=== PATIENT | female | born 1990 | race Hispanic/Latino ===

== ENCOUNTER → 2019-03-24 14:57 | Outpatient (CLI) | payer OTHER, MEDICAID, SELFPAY ==
[2019-03-24 15:37] LABS: Influenza A and B by PCR Rapid Negative (Negative)
== END ==
PROVIDERS: PCP Specialist; Visit Provider Physician Assistant
DX: R68.89 Other general symptoms and signs (principal)
CPT/HCPCS: 87400

== ENCOUNTER 2019-06-25 15:45 | Emergency (ER) | payer OTHER, MEDICAID, SELFPAY ==
[2019-06-25 15:45] VITALS: TEMP 37.5; BMI 33.6
--- NOTE | 2019-06-25 16:16 | ED.FEMALEGU ---
HPI - Female Genitourinary General Chief complaint: Urogenital-Female Stated complaint: flank pain, bilat, thinks kidney problems Time Seen by Provider: 06/25/19 15:47 Source: patient Mode of arrival: ambulatory Limitations: no limitations History of Present Illness HPI Narrative: This is a 28-year-old female comes in with complaint of abdominal pain a little bit of flank pain. Patient has had any objective fevers but has helped felt warm and chilled intermittently. Patient denies any nausea or vomiting. She denies any diarrhea or constipation. She is just finishing her menstruation and denies any other discharge or odor. Patient has a little bit of flank pain on the right. She does impression is much on the left. And some lower abdominal discomfort. She is not appreciating any urinary frequency urgency or dysuria currently. She denies any other abdominal surgeries beside . She states she has had kidney stones in the past. She denies any medications. Related Data Home Medications Medication Instructions Recorded Confirmed vit-iron fum-folic ac 1 cap PO QDAY #0 03/31/17 03/24/19 [Mynatal] [IRON] PO QDAY #0 09/10/17 03/24/19 Previous Rx's Medication Instructions Recorded docusate sodium 250 mg PO QDAY PRN #20 cap 09/28/17 ibuprofen 600 mg PO Q6HP PRN #30 tab 09/28/17 oxycodone-acetaminophen 1 - 2 tab PO Q4HP PRN #40 tab 09/28/17 benzonatate 100 mg capsule 100 mg PO BEDTIME #20 cap 03/24/19 sulfamethoxazole-trimethoprim 1 tab PO BID #20 tab 06/25/19 [Bactrim DS] Allergies Allergy/AdvReac Type Severity Reaction Status Date / Time Penicillins [PENICILLINS] Allergy Unknown Verified 03/24/19 15:03 UNK ANTIBIOTIC Allergy Unknown Uncoded 03/06/18 12:31 Review of Systems Review of Systems ROS Unobtainable: All systems reviewed & are unremarkable except as noted in HPI and below Constitutional Denies chills, Denies fever(s), Denies lethargy and Denies weakness ENT Ears, Nose, Mouth, and Throat: Denies nasal congestion Cardiovascular Denies chest pain and Denies dyspnea Respiratory Denies chest congestion, Denies cough and Denies dyspnea Gastrointestinal Gastrointestinal: Denies abdominal pain, Denies melena, Denies hematochezia, Denies change in bowel habits, Denies diarrhea, Denies nausea and Denies vomiting Genitourinary Denies abnormal menses, Denies abnormal vaginal bleeding, Denies hematuria, Denies genital lesions, Denies dysuria, Reports pelvic pain, Reports flank pain, Denies urinary incontinence, Denies urinary urgency, Denies vaginal discharge and Denies vaginal odor Musculoskeletal Denies back pain Integumentary/Breasts Denies rash Neurologic Denies weakness [facility] Surgical History (Updated 06/25/19 @ 17:53 by Cara Thomas DO) History of (Chronic) Social History Smoking Status: Never smoker Social History Smoking Status: Never smoker Exam Narrative Exam Narrative: GENERAL: Alert and oriented x three, well-nourished, well-appearing female in mild distress. HEENT: Head normocephalic, atraumatic, EOMI, pupils reactive, face symmetric, moist mucous membranes NECK: Supple, full range of motion CARDIOVASCULAR: Regular rate and rhythm without murmurs, rubs or gallops. RESPIRATORY: Breath sounds equal bilaterally, no wheezes rales or rhonchi. ABDOMEN: Soft, nontender. Normoactive bowel sounds all 4 quadrants. No guarding or rebound, rigidity, no mass : Mild right CVA tenderness, mild left CVA tenderness. EXTREMITIES: Normal range of motion, no clubbing or edema. Neurovascularly intact NEUROLOGICAL: Cranial nerves II through XII grossly intact. Moving all extremities SKIN: Warm, dry, no petechiae, no rashes or lesions. Initial Vital Signs Initial Vital Signs: Vital Signs Temperature 99.5 F 06/25/19 15:45 Course Orders Ordered: ED Orders 06/25/19 15:55 Urine Culture Stat Urine Microscopic Stat Vital Signs - 8 hr 06/25/19 15:45 06/25/19 16:39 Temperature 99.5 F Pulse Rate 108 H Respiratory Rate 19 Blood Pressure 118/69 Pulse Oximetry 100 MDM - Female Genitourinary Lab Data Lab Results 06/25/19 Range/Units 15:55 Urine RBC None seen (0-5/HPF) Urine WBC None seen (0-5/HPF) Ur Squamous Epith Cells 1-5 /hpf (0-5/HPF) Urine Bacteria Few (2-10) H (None) Ur Culture Indicated? Specimen cultured Point of Care Testing Test Results Negative Urine Dip Bedside Urine Glucose Negative Bedside Urine Bilirubin - Negative Bedside Urine Ketone - Negative Urine Specific [place] 1.015 Bedside Urine Occult Blood +/- Bedside Urine pH 7.0 Bedside Urine Protein - Negative Bedside Urine Urobilinogen - Negative Bedside Urine Nitrite - Negative Bedside Urine Leukocytes +/- 15 Esterase MDM Narrative Medical decision making narrative: Patient and I discussed possible pyelonephritis but could potentially be other causes. Patient comfortable with watchful waiting and return if she is not improving on oral antibiotics. Discharge Plan Departure Patient Disposition: Home Clinical Impression: Pyelonephritis Discharge Date/Time: 06/25/19 16:40 Interventions: ED Discharge Assessment Last Done: 06/25/19 16:39 Instructions: DI for Kidney Infection Activity Restrictions/Additional Instructions: Follow-up in the next 3-5 days for recheck. Call for an appointment. Take antibiotics until completely gone. You may take ibuprofen up to a 800 mg every 8 hours as needed, it or Tylenol up to a 1000 mg every 8 hours as needed. Return to the emergency department for fevers greater than 100.4 F, altered mental status, persistent vomiting, rapidly worsening abdominal or flank pain, lightheadedness, passing out, black or bloody stools or other new or concerning symptoms. Prescriptions: New sulfamethoxazole-trimethoprim [Bactrim DS] 800-160 mg tablet 1 tab PO BID Qty: 20 RF: 0 No Action benzonatate 100 mg capsule 100 mg PO BEDTIME Qty: 20 RF: 0 vit-iron fum-folic ac [Mynatal] 1 EACH capsule 1 cap PO QDAY Qty: 0 RF: 0 [IRON] PO QDAY Qty: 0 RF: 0 oxycodone-acetaminophen 5 MG/325 MG tablet 1 - 2 tab PO Q4HP PRNQty: 40 RF: 0 ibuprofen 600 MG tablet 600 mg PO Q6HP PRNQty: 30 RF: 0 docusate sodium 250 MG capsule 250 mg PO QDAY PRNQty: 20 RF: 0 Referrals: Eleonora Bustamante MD [Primary Care Provider] -
[2019-06-25 16:23] LABS: RBC Urine None Seen (0-5/HPF); WBC Urine None Seen (0-5/HPF)
[2019-06-25 16:31] LABS: Bacteria Urine Few (2-10); Culture Indicated Urine Specimen Cultured; Squamous Epithelial Cell Urine 1-5 /HPF (0-5/HPF)
[2019-06-25 16:39] VITALS: BP 118/69; PULSE 108; RESP 19; O2SAT 100
--- NOTE | 2019-06-25 17:56 | ED_ITS ---
HPI - Female Genitourinary General Chief complaint: Urogenital-Female Stated complaint: flank pain, bilat, thinks kidney problems Time Seen by Provider: 06/25/19 15:47 Source: patient Mode of arrival: ambulatory Limitations: no limitations History of Present Illness HPI Narrative: This is a 28-year-old female comes in with complaint of abdominal pain a little bit of flank pain. Patient has had any objective fevers but has helped felt warm and chilled intermittently. Patient denies any nausea or vomiting. She denies any diarrhea or constipation. She is just finishing her menstruation and denies any other discharge or odor. Patient has a little bit of flank pain on the right. She does impression is much on the left. And some lower abdominal discomfort. She is not appreciating any urinary frequency ur gency or dysuria currently. She denies any other abdominal surgeries beside C- section. She states she has had kidney stones in the past. She denies any medications. Related Data Home Medications Medication Instructions Recorded Confirmed vit-iron fum-folic ac 1 cap PO QDAY #0 03/31/17 03/24/19 [Mynatal] [IRON] PO QDAY #0 09/10/17 03/24/19 Previous Rx's Medication Instructions Recorded docusate sodium 250 mg PO QDAY PRN #20 cap 09/28/17 ibuprofen 600 mg PO Q6HP PRN #30 tab 09/28/17 oxycodone-acetaminophen 1 - 2 tab PO Q4HP PRN #40 tab 09/28/17 benzonatate 100 mg capsule 100 mg PO BEDTIME #20 cap 03/24/19 sulfamethoxazole-trimethoprim 1 tab PO BID #20 tab 06/25/19 [Bactrim DS] Allergies Allergy/AdvReac Type Severity Reaction Status Date / Time Penicillins [PENICILLINS] Allergy Unknown Verified 03/24/19 15:03 UNK ANTIBIOTIC Allergy Unknown Uncoded 03/06/18 12:31 Review of Systems Review of Systems ROS Unobtainable: All systems reviewed & are unremarkable except as noted in HPI and below Constitutional Denies chills, Denies fever(s), Denies lethargy and Denies weakness ENT Ears, Nose, Mouth, and Throat: Denies nasal congestion Cardiovascular Denies chest pain and Denies dyspnea Respiratory Denies chest congestion, Denies cough and Denies dyspnea Gastrointestinal Gastrointestinal: Denies abdominal pain, Denies melena, Denies hematochezia, Denies change in bowel habits, Denies diarrhea, Denies nausea and Denies vomiting Genitourinary Denies abnormal menses, Denies abnormal vaginal bleeding, Denies hematuria, Denies genital lesions, Denies dysuria, Reports pelvic pain, Reports flank pain, Denies urinary incontinence, Denies urinary urgency, Denies vaginal discharge and Denies vaginal odor Musculoskeletal Denies back pain Integumentary/Breasts Denies rash Neurologic Denies weakness [facility] Surgical History (Updated 06/25/19 @ 17:53 by Cara Thomas DO) History of (Chronic) Social History Smoking Status: Never smoker Social History Smoking Status: Never smoker Exam Narrative Exam Narrative: GENERAL: Alert and oriented x three, well-nourished, well- appearing female in mild distress. HEENT: Head normocephalic, atraumatic, EOMI, pupils reactive, face symmetric, moist mucous membranes NECK: Supple, full range of motion CARDIOVASCULAR: Regular rate and rhythm without murmurs, rubs or gallops. RESPIRATORY: Breath sounds equal bilaterally, no wheezes rales or rhonchi. ABDOMEN: Soft, nontender. Normoactive bowel sounds all 4 quadrants. No guarding or rebound, rigidity, no mass : Mild right CVA tenderness, mild left CVA tenderness. EXTREMITIES: Normal range of motion, no clubbing or edema. Neurovascularly intact NEUROLOGICAL: Cranial nerves II through XII grossly intact. Moving all extremities SKIN: Warm, dry, no petechiae, no rashes or lesions. Initial Vital Signs Initial Vital Signs: Vital Signs Temperature 99.5 F 06/25/19 15:45 Course Orders Ordered: ED Orders 06/25/19 15:55 Urine Culture Stat Urine Microscopic Stat Vital Signs - 8 hr 06/25/19 15:45 06/25/19 16:39 Temperature 99.5 F Pulse Rate 108 H Respiratory Rate 19 Blood Pressure 118/69 Pulse Oximetry 100 MDM - Female Genitourinary Lab Data Lab Results 06/25/19 Range/Units 15:55 Urine RBC None seen (0-5/HPF) Urine WBC None seen (0-5/HPF) Ur Squamous Epith Cells 1-5 /hpf (0-5/HPF) Urine Bacteria Few (2-10) H (None) Ur Culture Indicated? Specimen cultured Point of Care Testing Test Results Negative Urine Dip Bedside Urine Glucose Negative Bedside Urine Bilirubin - Negative Bedside Urine Ketone - Negative Urine Specific [place] 1.015 Bedside Urine Occult Blood +/- Bedside Urine pH 7.0 Bedside Urine Protein - Negative Bedside Urine Urobilinogen - Negative Bedside Urine Nitrite - Negative Bedside Urine Leukocytes +/- 15 Esterase MDM Narrative Medical decision making narrative: Patient and I discussed possible pyelonephritis but could potentially be other causes. Patient comfortable with watchful waiting and return if she is not improving on oral antibiotics. Discharge Plan Departure Patient Disposition: Home Clinical Impression: Pyelonephritis Discharge Date/Time: 06/25/19 16:40 Interventions: ED Discharge Assessment Last Done: 06/25/19 16:39 Instructions: DI for Kidney Infection Activity Restrictions/Additional Instructions: Follow-up in the next 3-5 days for recheck. Call for an appointment. Take antibiotics until completely gone. You may take ibuprofen up to a 800 mg every 8 hours as needed, it or Tylenol up to a 1000 mg every 8 hours as needed. Return to the emergency department for fevers greater than 100.4 F, altered mental status, persistent vomiting, rapidly worsening abdominal or flank pain, lightheadedness, passing out, black or bloody stools or other new or concerning symptoms. Prescriptions: New sulfamethoxazole-trimethoprim [Bactrim DS] 800-160 mg tablet 1 tab PO BID Qty: 20 RF: 0 No Action benzonatate 100 mg capsule 100 mg PO BEDTIME Qty: 20 RF: 0 vit-iron fum-folic ac [Mynatal] 1 EACH capsule 1 cap PO QDAY Qty: 0 RF: 0 [IRON] PO QDAY Qty: 0 RF: 0 oxycodone-acetaminophen 5 MG/325 MG tablet 1 - 2 tab PO Q4HP PRNQty: 40 RF: 0 ibuprofen 600 MG tablet 600 mg PO Q6HP PRNQty: 30 RF: 0 docusate sodium 250 MG capsule 250 mg PO QDAY PRNQty: 20 RF: 0 Referrals: Eleonora Bustamante MD [Primary Care Provider] -
== END 2019-06-25 16:40 | disposition home or self-care (01) ==
PROVIDERS: Emergency Provider Emergency Medicine; PCP Specialist
DX: N12 Tubulo-interstitial nephritis, not specified as acute or chronic (principal)
CPT/HCPCS: 81003; 81015; 81025; 87086; 99282; 99283

== ENCOUNTER → 2020-07-05 16:38 | Outpatient (CLI) | payer OTHER, MEDICAID, SELFPAY ==
[2020-07-05 17:26] LABS: Add Manual Diff / Slide Review NO; Basophils Absolute Auto 0 /uL (0-100); Basophils Percent Auto 0.1 % (0-2); Eosinophils Absolute Auto 0 /uL (0-450); Eosinophils Percent Auto 0.4 % (2-4); Hematocrit 34.7 % (36-46); Hemoglobin 11.7 g/dL (12.0-16.0); Lymphocytes Absolute Auto 2700 /uL (1100-4500); Lymphocytes Percent Auto 29.2 % (25-40); Mean Corpuscular HGB Conc 33.7 % (30-36); Mean Corpuscular Hemoglobin 27.9 PG (26-34); Mean Corpuscular Volume 82.8 fL (80-100); Monocytes Absolute Auto 500 /uL (0-900); Monocytes Percent Auto 5.6 % (3-14); Neutrophils Absolute Auto 5900 /uL (1500-7000); Neutrophils Percent Auto 64.7 % (50-75); Platelet Count 243 X10^3/uL (150-400); Red Blood Cell Count 4.19 X10^6/uL (4.0-5.2); Red Cell Distribution Width 14.5 % (11.6-14.8); White Blood Cell Count 9.2 X10^3/uL (4.5-11.0)
[2020-07-05 17:55] LABS: Appearance Urine UA CLEAR; Bilirubin Urine UA NEGATIVE (NEGATIVE); Color Urine UA YELLOW; Glucose Urine UA NEGATIVE (Negative); Ketones Urine UA NEGATIVE (NEGATIVE); Leukocyte Esterase Urine UA NEGATIVE (NEGATIVE); Nitrite Urine UA NEGATIVE (Negative); Occult Blood Urine UA NEGATIVE (Negative); Protein Urine UA NEGATIVE (Negative); Urobilinogen Urine UA 0.2 E.U./dL (0.2)
[2020-07-05 18:46] LABS: Hepatitis B Surface Antigen NEGATIVE s/c (NEGATIVE)
[2020-07-05 19:06] LABS: HIV 1 & 2 Ab/Ag 4th Gen Combo NEGATIVE (NEGATIVE); Hep C Virus Ab w/Reflex Quant NEGATIVE s/c (NEGATIVE)
[2020-07-06 05:37] LABS: RPR Screen Non Reactive (Non Reactive)
[2020-07-06 11:22] LABS: Varicella IgG Antibody 723 index (Immune >165)
== END ==
PROVIDERS: PCP Specialist; Referring Provider Specialist; Visit Provider Specialist
DX: Z34.90 Encounter for supervision of normal pregnancy, unspecified, unspecified trimester (principal)
CPT/HCPCS: 36415; 80055; 81003; 86787; 86803; 86850; 86900; 86901; 87077; 87086; 87389

== ENCOUNTER → 2020-08-04 10:54 | Outpatient (CLI) | payer OTHER, MEDICAID, SELFPAY ==
--- NOTE | 2020-08-04 10:55 | DI.US.S_ITS ---
PROCEDURE: US OB >= 14 WEEKS FETUS INDICATIONS: 20 week anatomy scan OUTSIDE/PRIOR DATING DATA: Last menstrual period (LMP): March 19, 2020. LMP-based estimated date of delivery (BLANCA): December 24, 2020 . First dating scan (date and location): May 24, 2020 . Estimated date of delivery (BLANCA) from first dating scan: December 24, 2020 . TECHNIQUE: Real-time scanning was performed of the fetus, with image documentation and biometric measurements. Endovaginal scanning: Not performed COMPARISON: None. FINDINGS: General: A single living intrauterine gestation is present. Presentation: Transverse/maternal right. Placenta: Placental position is anterior , without previa. Amniotic fluid index: 15.5 cm, normal range is 5-24 cm. heart rate: 158 beats per minute. Maternal cervical canal: 4.6 cm long. Normal lower limit is 2.5 cm. biometrics: Biparietal diameter: 4.6 cm, correlating with 19 weeks and 6 days Head circumference: 12.3 cm, correlating with 19 weeks and 6 days Abdominal circumference: 14.8 cm, correlating with 20 weeks and 1 day Femur length: 3.2 cm, correlating with 20 weeks and 0 days. Estimated gestational age from initial scan: 19 weeks and 5 days. Composite gestational age from present scan: 20 weeks and 0 days Estimated weight and percentile: 327 g Measurement variability for biometric dating: +/- 7 days from 14 weeks to 15 weeks 6 days gestation, +/- 10 days from 16 weeks to 21 weeks 6 days gestation, +/- 2 weeks from 22 weeks to 27 weeks 6 days gestation, +/- 3 weeks for 28 weeks gestation or later. weight reference: 4500 g or EFW >90/95% is considered macrosomia or large for gestational age. EFW <10% is small for gestational age. EFW 5% or less is considered intra-uterine growth restriction. Anatomic survey: Neuro: Ventricles are non-dilated at less than 10 mm. Cisterna magna is normal at 3-11 mm. Cerebellum is normal in size and morphology. Nuchal skin fold: Normal at less than 6 mm between 14-21 weeks gestational age. Face: Nose and lips, facial profile are normal. Spine: No evidence for spina bifida. Heart: 4-chambered heart is present, with normal ventricular outflow tracts. Diaphragm: Diaphragm is intact. Stomach: Left-sided stomach is present. Kidneys: No hydronephrosis. Normal is less than 5 mm in 2nd trimester, less than 7 mm in 3rd trimester. Cord: 3-vessel cord has orthotopic insertion. Bladder: Normal in size. Extremities: All 4 extremities identified. IMPRESSION: Single living intrauterine gestation with an estimated sonographic gestational age of approximately 20 weeks and 0 days. This correlates with an estimated dated delivery December 22, 2020 which is still concordant with estimated date of delivery by last menstrual period of December 24, 2020. Normal second-trimester anatomic screening survey. Dictated by: Geovanni Dietz M.D. on 08/04/2020 at 14:42 Approved by: Geovanni Dietz M.D. on 08/04/2020 at 14:47
== END ==
PROVIDERS: PCP Specialist; Referring Provider Specialist; Visit Provider Specialist
DX: Z34.82 Encounter for supervision of other normal pregnancy, second trimester (principal); Z3A.20 20 weeks gestation of pregnancy
CPT/HCPCS: 76811

== ENCOUNTER 2020-09-02 17:54 | Outpatient (CLI) | payer OTHER, MEDICAID, SELFPAY | END 2020-09-02 19:08 | disposition home or self-care (01) | LOC: OB 09-03 13:01 | PROVIDERS: Referring Provider Specialist; Visit Provider Specialist | DX: O47.02 False labor before 37 completed weeks of gestation, second trimester (principal); Z3A.23 23 weeks gestation of pregnancy | CPT/HCPCS: 59025; G0378; G0379 ==

== ENCOUNTER → 2020-09-15 15:07 | Outpatient (CLI) | payer OTHER, MEDICAID, SELFPAY ==
[2020-09-15 18:02] LABS: Hematocrit 31.9 % (36-46); Hemoglobin 10.8 g/dL (12.0-16.0)
[2020-09-15 18:12] LABS: GTT (PREG) 1 Hour PP 50gm Dose 103 mg/dL (76-139)
== END ==
PROVIDERS: Referring Provider Specialist; Visit Provider Specialist
DX: Z34.82 Encounter for supervision of other normal pregnancy, second trimester (principal); Z3A.24 24 weeks gestation of pregnancy
CPT/HCPCS: 36415; 82950; 85014; 85018

== ENCOUNTER → 2020-12-01 15:10 | Outpatient (CLI) | payer OTHER, MEDICAID, SELFPAY ==
[2020-12-02 11:08] LABS: Strep Grp B PCR POS for Grp B Strep
== END ==
PROVIDERS: Visit Provider Specialist
DX: Z34.83 Encounter for supervision of other normal pregnancy, third trimester (principal); Z3A.36 36 weeks gestation of pregnancy
CPT/HCPCS: 87186; 87653

== ENCOUNTER 2020-12-15 11:41 | Outpatient (CLI) | payer OTHER, MEDICAID, SELFPAY ==
--- NOTE | 2020-12-15 12:11 | PM.OBTRLD ---
Visit Information Visit Information Date of evaluation: 12/15/20 Primary OB Provider: Eleonora Bustamante Reason for Evaluation: Yes non-stress test non-stress test reason: decreased movement and other (Abdominal pain) Vital Signs Vital Signs: Blood pressure 119/75, pulse 72 PFSH Medical History (Updated 12/15/20 @ 12:12 by Eleonora Bustamante MD) Abnormal Pap smear of cervix Acne (~2006) Acute bronchitis Anemia Anemia affecting Asthma Carpal tunnel syndrome (~2007) Chicken pox (~1994) Closed fracture of distal phalanx of right little finger Conjunctivitis Delivered by section HSV-1 (herpes simplex virus 1) infection Kidney stones UTI (urinary tract infection) Surgical History (Updated 07/04/20 @ 19:43 by Alyssa Sanchez) Anesthesia History of appendectomy (~2002) History of (~09/26/17) S/P laparoscopic appendectomy S/P tonsillectomy (~2001) Family History (Updated 07/04/20 @ 19:48 by Alyssa Sanchez) Mother Hypertension Father Hypertension Sleep apnea Grandfather Bipolar 1 disorder History of heart disease Grandfather Hypertension Sleep apnea Diabetes mellitus History of heart disease Hyperlipidemia Grandmother Liver failure Alcoholic Mental health problem Family/Other Deafness Grandmother Sleep apnea Hypertension Diabetes mellitus Brother Hypertension Adopted Hyperlipidemia Sister Anxiety Depression Mental health problem Social History marital status: unmarried,living together household members: significant other pets and animals: Yes (X 2 dogs and X 1 cat) education level: college occupational status: employed current occupational exposures/hazards: No 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 No evidence of labor. Patient is scheduled in 2 days for . Precautions reviewed. COVID testing done. OB Disposition: home
[2020-12-15 13:07] LABS: COVID19 -Nasal RAPID Negative (Negative)
== END 2020-12-15 12:21 | disposition home or self-care (01) ==
LOC: LABOR 12:01 → OB 12-16 11:53
PROVIDERS: Referring Provider Specialist; Visit Provider Specialist
DX: O36.8190 Decreased fetal movements, unspecified trimester, not applicable or unspecified (principal)
CPT/HCPCS: 59025; 87635; C9803; G0378; G0379

== ENCOUNTER 2020-12-17 05:45 | Inpatient (IN) | payer OTHER, MEDICAID, SELFPAY ==
[2020-12-17] VITALS (7 sets, daily range): BP systolic 105–129; BP diastolic 60–80; PULSE 70–91; RESP 12–18; TEMP 36.4–36.7; O2SAT 98–100
[2020-12-17] MEDS: LACTATED RINGERS 1,000 ML 100 ML IV ×4 (06:20→18:49)
[2020-12-17 06:38] LABS: Add Manual Diff / Slide Review NO; Basophils Absolute Auto 0 /uL (0-100); Basophils Percent Auto 0.4 % (0-2); Eosinophils Absolute Auto 100 /uL (0-450); Eosinophils Percent Auto 1.1 % (2-4); Hematocrit 35.6 % (36-46); Lymphocytes Absolute Auto 2500 /uL (1100-4500); Lymphocytes Percent Auto 32.7 % (25-40); Mean Corpuscular HGB Conc 33.6 % (30-36); Mean Corpuscular Hemoglobin 29.7 PG (26-34); Mean Corpuscular Volume 88.2 fL (80-100); Monocytes Absolute Auto 400 /uL (0-900); Monocytes Percent Auto 5.6 % (3-14); Neutrophils Absolute Auto 4600 /uL (1500-7000); Neutrophils Percent Auto 60.2 % (50-75); Platelet Count 139 X10^3/uL (150-400); Red Blood Cell Count 4.03 X10^6/uL (4.0-5.2); Red Cell Distribution Width 14.9 % (11.6-14.8); White Blood Cell Count 7.6 X10^3/uL (4.5-11.0)
--- NOTE | 2020-12-17 07:22 | PM.PREOP ---
Pre-operative Note COVID-19 COVID-19 status: Negative Result date/Date tested (Pos, Neg/Pending): 12/15/20 Interval Note History & Physical reviewed/Exam performed by Physician: Yes Changes to H&P: No
--- NOTE | 2020-12-17 07:23 | PM.OBHP.1 ---
OB HPI Date/Time Date of admission: 12/17/20 Date Patient Seen: 12/17/20 Time Patient Seen: 07:23 History of Present Condition Chief complaint: INPT : 2 Para: 1 Estimated Date of Delivery: 12/24/20 Estimated Gestational Age (weeks): 39 Narrative: Yanna Lovett is a 30 year old female admitted for repeat section Indications Operative indications ( section): previous uterine surgery History of Present care: good care, initiated at week # (8), number of visits (10) and pounds weight gain (49) Dating criteria: LMP confirmed by 1st trimester US Ultrasounds: normal mid trimester US Obstetrical complications: none Medical complications: none Preadmission Labs Blood type: O (+) positive -: Antibody screen: negative, GBS status: positive, HBsAG: negative, HIV: negative, HSV 1: positive, HSV 2: negative and RPR/VDLR: negative -: Chlamydia screen: not detected and Gonorrhea screen: not detected -: Rubella: immune and Varicella: immune HCAB: negative Quad screen: Normal 1 hr GTT: 103 Prior (ies) History: 09/26/2017 section male weighing 8 lb 7 oz Evaluation Evaluation Baseline heart rate: 140 Variability: Moderate (11-25) monitor accelerations: Present monitor decelerations: Absent Contraction Frequency (minutes): 8 Uterine Contraction Intensity: Mild Category of Tracing: Reactive Status: Category l Laboratory results: Laboratory Tests 12/17/20 06:25 WBC 7.6 RBC 4.03 Hgb 12.0 Hct 35.6 L MCV 88.2 MCH 29.7 MCHC 33.6 RDW 14.9 H Plt Count 139 L Neut % (Auto) 60.2 Lymph % (Auto) 32.7 [place] % (Auto) 5.6 Eos % (Auto) 1.1 L Baso % (Auto) 0.4 Neut # (Auto) 4600 Lymph # (Auto) 2500 [place] # (Auto) 400 Eos # (Auto) 100 Baso # (Auto) 0 PFSH Medical History (Updated 12/15/20 @ 12:12 by Eleonora Bustamante MD) Abnormal Pap smear of cervix Acne (~2006) Acute bronchitis Anemia Anemia affecting Asthma Carpal tunnel syndrome (~2007) Chicken pox (~1994) Closed fracture of distal phalanx of right little finger Conjunctivitis Delivered by section HSV-1 (herpes simplex virus 1) infection Kidney stones UTI (urinary tract infection) Surgical History (Updated 07/04/20 @ 19:43 by Alyssa Sanchez) Anesthesia History of appendectomy (~2002) History of (~09/26/17) S/P laparoscopic appendectomy S/P tonsillectomy (~2001) Family History (Updated 07/04/20 @ 19:48 by Alyssa Sanchez) Mother Hypertension Father Hypertension Sleep apnea Grandfather Bipolar 1 disorder History of heart disease Grandfather Hypertension Sleep apnea Diabetes mellitus History of heart disease Hyperlipidemia Grandmother Liver failure Alcoholic Mental health problem Family/Other Deafness Grandmother Sleep apnea Hypertension Diabetes mellitus Brother Hypertension Adopted Hyperlipidemia Sister Anxiety Depression Mental health problem Social History marital status: unmarried,living together household members: significant other pets and animals: Yes (X 2 dogs and X 1 cat) education level: college occupational status: employed current occupational exposures/hazards: No 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 Good movement. No rupture membranes. No regular contractions. ROS: Yes All systems reviewed with the patient and are negative except as otherwise documented Exam Vital Signs (past 8 hours): Blood pressure 124/91, pulse of 100, temperature 96.8? Narrative Exam Narrative: HEENT exam within normal limits. Lungs are clear to auscultation percussion. Heart is regular rate and rhythm no S3-S4 or murmurs. Abdomen is gravid. Fetus is vertex. Extremities without edema and nontender. Patient did received Tdap in the 3rd trimester. Objective Labs Result Diagrams: 12/17/20 06:25 Labs: Laboratory Results - last 24 hr 12/17/20 06:25 WBC 7.6 RBC 4.03 Hgb 12.0 Hct 35.6 L MCV 88.2 MCH 29.7 MCHC 33.6 RDW 14.9 H Plt Count 139 L Neut % (Auto) 60.2 Lymph % (Auto) 32.7 [place] % (Auto) 5.6 Eos % (Auto) 1.1 L Baso % (Auto) 0.4 Neut # (Auto) 4600 Lymph # (Auto) 2500 [place] # (Auto) 400 Eos # (Auto) 100 Baso # (Auto) 0 Assessment and Plan Assessment and Plan Assessment and Plan narrative: 39 week gestation with prior section for repeat section. Patient decided not to proceed with tubal ligation.
--- NOTE | 2020-12-17 07:30 | SUR.OPER ---
Supine on Padded OR bed, head on pillow, safety belt at thigh, arms secured on padded arm boards at <90 degrees abduction. Bump under right buttock. Legs uncrossed with pillow under knees, gel pad to heels, tape over blanket to lower legs.
[2020-12-17] MEDS: CEFAZOLIN 2 GM/100 ML FROZ.PIGGY IV (07:59)
--- NOTE | 2020-12-17 08:27 | SUR.OPER ---
FHT 140 LIVE MALE BORN AT 0816 PLACENTA AT 0818
--- NOTE | 2020-12-17 09:11 | SUR.PHASEI ---
L&D nurse came to bedside asking pt. what she'd prefer, formula or glucose gel, for baby's BG 27. mom stated, whatever is best for the baby, nurse left. ongoing monitoring, pt. doing well.
--- NOTE | 2020-12-17 09:19 | PM.OP.1 ---
Operative Date/Time/Diagnoses Date of procedure: 12/17/20 Time of procedure: 09:20 Pre-op diagnosis: Prior section at 39 weeks for repeat Post-op diagnosis: same Procedure & Clinicians Procedure: Repeat low-transverse section Same procedure as scheduled: Yes Indications: Prior section at 39 weeks Surgeon: Eleonora Bustamante Registration Specialist: Indira Centeno Click Yes if Unassisted: No Anesthesia Type: Spinal Operative Notes Findings: Normal tubes, ovaries, uterus, viable male infant weighing 7 lb 8 oz with Apgars of 9 and 9 Closure Type: primary Specimen(s): none sent Applied: catheter ([place]) Estimated Blood Loss (mL): 300 Blood products transfused: none Procedure in detail: The patient was brought to the operating room where she underwent a spinal for anesthesia. She was placed in a supine position with a left lateral tilt. A [place] catheter was placed. Pulsatile stockings were placed and functional throughout the case. 2 g of Ancef were given IV prior to the incision. Warming was in place. The patient was prepped and draped in usual sterile fashion. A low transverse incision was made with a scalpel and the incision was carried down to the fascial layer which was incised transversely with scissors. The assistant community manager did her side of the incision. The midline attachments are superiorly and inferiorly. Some bleeding was controlled Bovie. The rectus muscles were in the midline and the peritoneal incision was made with no damage to internal structures. The peritoneum was incised and superiorly and inferiorly. The incision was stretched with the surgeon and assistant community manager placing traction. Bladder blade was placed and a bladder flap was developed and the bladder held away from the lower uterine segment. An incision was made in the uterus with the scalpel and the incision was extended with stretching. The head was elevated out of the abdomen and with fundal pressure by the assistant community manager the baby was delivered. The was bulb suctioned for clear fluid and handed off to the warmer. Cord blood was collected. The placenta delivered spontaneously with traction. The uterus was cleaned with clean laps. The uterine incision was closed in 2 layers of 0 chromic suture the first a running locking layer the second an imbricating layer. The assistant community manager was helping to expose the incision. The bladder peritoneum was repaired with 2-0 Vicryl suture. The gutters were cleaned of any remaining fluids and ovaries and tubes were observed to be normal. Adequate hemostasis was noted. The perineum was closed with 2-0 Vicryl suture. The fascia layer was closed with 0 Vicryl suture with 2 stitches. The assistant community manager repairing half the incision with helping to retract and expose the incision for the other half. The incision was irrigated and adequate hemostasis noted. The incision was closed with interrupted 3-0 Vicryl sutures and then a subcuticular stitch of 4-0 Vicryl suture. Steri-Strips were placed. The uterus was massaged to remove any clots. The patient went to recovery room in good condition. Counts of instruments and sponges were correct. Dr. Centeno was present throughout the case to assist with retraction, fundal pressure to deliver the infant, and suturing half the fascia. Complications: none Post-operative Condition: stable Disposition: other ( Center) Plan for aftercare: Routine post section
[2020-12-17] MEDS: KETOROLAC 30 MG/ML VIAL IV ×2 (14:41→20:33)
[2020-12-17] MEDS: LANOLIN OINT 7 GM 1 APPLIC TOP (17:36)
[2020-12-18] MEDS: KETOROLAC 30 MG/ML VIAL IV (02:32)
[2020-12-18] MEDS: ACETAMINOPHEN 325 MG TABLET 650 MG PO ×2 (02:33→08:52)
[2020-12-18 06:36] LABS: Add Manual Diff / Slide Review NO; Basophils Absolute Auto 0 /uL (0-100); Basophils Percent Auto 0.3 % (0-2); Eosinophils Absolute Auto 100 /uL (0-450); Eosinophils Percent Auto 1.2 % (2-4); Hematocrit 32.2 % (36-46); Hemoglobin 10.9 g/dL (12.0-16.0); Lymphocytes Absolute Auto 2000 /uL (1100-4500); Lymphocytes Percent Auto 29.8 % (25-40); Mean Corpuscular HGB Conc 33.8 % (30-36); Mean Corpuscular Volume 88.6 fL (80-100); Monocytes Absolute Auto 400 /uL (0-900); Monocytes Percent Auto 5.4 % (3-14); Neutrophils Absolute Auto 4300 /uL (1500-7000); Neutrophils Percent Auto 63.3 % (50-75); Platelet Count 127 X10^3/uL (150-400); Red Blood Cell Count 3.64 X10^6/uL (4.0-5.2); Red Cell Distribution Width 14.7 % (11.6-14.8); White Blood Cell Count 6.9 X10^3/uL (4.5-11.0)
[2020-12-18] MEDS: PRENATAL VIT,CALC/IRON/FOLIC 1 TABLET 1 TAB PO (08:52)
[2020-12-18] MEDS: DOCUSATE 250 MG CAPSULE PO (08:52)
[2020-12-18] MEDS: IBUPROFEN 600 MG TABLET PO (08:53)
--- NOTE | 2020-12-18 10:29 | P.DS_ITS ---
Discharge Providers Provider Date of admission: 12/17/20 05:45 Discharge Date: 12/18/20 Primary care physician: Doctor Melvin MD Consults: 12/17/20 10:32 Consult to Insurance Sales Representative Routine Comment: Discharge provider: Eleonora Bustamante MD Summary Hospital Course Date Patient Seen: 12/18/20 Time Patient Seen: 10:30 Procedures: Repeat low-transverse section Hospital Course: Patient was admitted for repeat low-transverse section. She did well . She is urinating and ambulating well. She is passing gas. She denies any headaches, scotomata, epigastric pain. Bleeding is mild. Peripartum Data Infant Delivery Method: Section (Repeat) complications: none [place] 1: Gender: Male Disposition of : home Discharge Diagnosis (1) delivery delivered: Status: Acute Status at Discharge Cognitive/behavioral status at discharge: oriented Functional status at discharge: independent ambulation Overall status at discharge: patient is progressing back to baseline Time Spent with Patient Time attestation: Total time spent providing and/or coordinating discharge services: Time spent: Less than 30 minutes Objective Labs Result Diagrams: 12/18/20 06:28 Labs: Laboratory Results - last 24 hr 12/18/20 06:28 WBC 6.9 RBC 3.64 L Hgb 10.9 L Hct 32.2 L MCV 88.6 MCH 30.0 MCHC 33.8 RDW 14.7 Plt Count 127 L Neut % (Auto) 63.3 Lymph % (Auto) 29.8 [place] % (Auto) 5.4 Eos % (Auto) 1.2 L Baso % (Auto) 0.3 Neut # (Auto) 4300 Lymph # (Auto) 2000 [place] # (Auto) 400 Eos # (Auto) 100 Baso # (Auto) 0 Exam Vital Signs (past 8 hours): Blood pressure 129/80, pulse of 91, temperature 98.1? Oxygen Delivery Method Room Air Narrative Exam Narrative: Abdomen is soft, nontender. Uterus is firm, at U, nontender. Dressing is clean, dry. Mild lochia. Extremities without edema and nontender. Patient's blood type is O positive, she is rubella immune, she received Tdap in the 3rd trimester. Discharge Plan Discharge Plan Patient Disposition: Home Discharge orders & Medications Prescriptions: New ibuprofen 600 mg Tablet 600 mg PO Q6HR PRN (Reason: Fever/Mild Pain (1-3)) Qty: 30 RF: 0 oxycodone-acetaminophen [Percocet] 5-325 mg tablet 1 tab PO Q4H PRN (Reason: pain) Qty: 30 RF: 0 Continued vit-iron fum-folic ac [Mynatal] 1 EACH capsule 1 cap PO QDAY Qty: 0 RF: 0 [IRON] PO QDAY Qty: 0 RF: 0 Follow up/Referrals: Eleonora Bustamante MD [Physician] - 1 Week (Aquacel removal) Doctor Charles MD [Primary Care Provider] - Diet/Activity/Treatments Diet: Regular Activity: Nothing in vagina or lifting over 20 lb for 6 weeks Skin/Wound/Dressing Care Report to your healthcare provider any signs of infection, such as:: chills, fever and increased pain Dressing: Leave dressing in place until one-week postop appointment Discharge Data Primary Care Provider: Doctor Melvin
== END 2020-12-18 13:12 | disposition home or self-care (01) | DRG 540 ==
PROVIDERS: Admitting Provider Specialist; Referring Provider Specialist; Visit Provider Specialist
PROC: 10D00Z1 Extraction of Products of Conception, Low, Open Approach (ICD-10-PCS; CPT 59514; principal; 2020-12-17 07:45)
DX: O34.219 Maternal care for unspecified type scar from previous cesarean delivery (principal); O36.8190 Decreased fetal movements, unspecified trimester, not applicable or unspecified; O99.824 Streptococcus B carrier state complicating childbirth; Z3A.39 39 weeks gestation of pregnancy; Z37.0 Single live birth
CPT/HCPCS: 36415; 59025; 59050; 59514; 85025; 86850; 86900; 86901; 87635; C9803; J0690; J1885; J2274; J2405; J2590

== ENCOUNTER 2022-02-15 07:37 | Emergency (ER) | payer OTHER, MEDICAID, SELFPAY ==
[2022-02-15 07:38] VITALS: BP 122/73; PULSE 95; RESP 17; TEMP 37; O2SAT 100; BMI 38.4
--- NOTE | 2022-02-15 07:52 | ED.BACK ---
HPI - Back Pain/Injury General Chief Complaint: Back Pain/Injury Stated Complaint: possible kidney infection, nausea Time Seen by Provider: 02/15/22 07:40 Source: patient Mode of arrival: Ambulatory Limitations: no limitations History of Present Illness HPI Narrative: 31-year-old female who is here stating that she thinks she has a kidney infection. She states that for the past month she has had off and on right more than left back discomfort. She states that it feels similar to when she has had kidney infections in the past. She also states that she started her menstrual cycle last week which made the discomfort worse. Has not followed up for this during the past month. Some nausea today. No fevers. She states that she did have ?low-grade ?fevers when all the symptoms started but nothing currently. No specific urinary symptoms. She states she has had kidney stones in the past but this does not feel like kidney stone. Related Data Home Medications Medication Instructions Recorded Confirmed vitamin-ferrous fumarate 1 cap PO QDAY #0 03/31/17 01/20/21 65 mg iron-folic acid 1 mg capsule (Mynatal) [IRON] PO QDAY #0 09/10/17 01/20/21 Previous Rx's Medication Instructions Recorded ibuprofen 600 mg tablet 600 mg PO Q6HR PRN #30 tab 12/18/20 Allergies Allergy/AdvReac Type Severity Reaction Status Date / Time Penicillins Allergy Intermediate Vomiting Verified 10/13/20 14:45 Review of Systems Constitutional Constitutional: Reports as per HPI and Reports system reviewed and no additional complaints, except as documented Cardiovascular Cardiovascular: Reports system reviewed and no additional complaints, except as documented Respiratory Respiratory: Reports system reviewed and no additional complaints, except as documented Gastrointestinal Gastrointestinal: Reports as per HPI and Reports system reviewed and no additional complaints, except as documented Genitourinary Genitourinary: Reports system reviewed and no additional complaints, except as documented and Reports as per HPI Musculoskeletal Musculoskeletal: Reports back pain Hematologic/Lymphatic On Anticoagulants: No Patient History Medical History Abnormal Pap smear of cervix Acne (~2006) Acute bronchitis Anemia Anemia affecting Asthma Carpal tunnel syndrome (~2007) Chicken pox (~1994) Closed fracture of distal phalanx of right little finger Conjunctivitis Delivered by section HSV-1 (herpes simplex virus 1) infection Kidney stones Pyelonephritis UTI (urinary tract infection) Surgical History (Updated 07/04/20 @ 19:43 by Alyssa Sanchez) Anesthesia History of appendectomy (~2002) History of (~09/26/17) S/P laparoscopic appendectomy S/P tonsillectomy (~2001) Family History (Updated 07/04/20 @ 19:48 by Alyssa Sanchez) Mother Hypertension Father Hypertension Sleep apnea Grandfather Bipolar 1 disorder History of heart disease Grandfather Hypertension Sleep apnea Diabetes mellitus History of heart disease Hyperlipidemia Grandmother Liver failure Alcoholic Mental health problem Family/Other Deafness Grandmother Sleep apnea Hypertension Diabetes mellitus Brother Hypertension Adopted Hyperlipidemia Sister Anxiety Depression Mental health problem Social History marital status: unmarried,living together household members: significant other pets and animals: Yes (X 2 dogs and X 1 cat) education level: college occupational status: employed current occupational exposures/hazards: No 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 Smoking Status: Never smoker second hand exposure: No alcohol intake: former substance use type: does not use Smoking Status: Never smoker alcohol intake frequency: 0-2 drinks per day Substance Use Type: does not use Exam Initial Vital Signs Initial Vital Signs: Vital Signs Temperature 98.6 F 02/15/22 07:38 Pulse Rate 95 H 02/15/22 07:38 Respiratory Rate 17 02/15/22 07:38 Blood Pressure 122/73 02/15/22 07:38 Pulse Oximetry 100 02/15/22 07:38 HENMT Head: normal to inspection and normocephalic Resp Effort & Inspection: normal respiratory effort Auscultation: clear to auscultation bilaterally Cardio Rate: regular rate Rhythm: regular rhythm GI Inspection: normal to inspection Back/Spine/Pelvis Back: No CVA tenderness Thoracic/Lumbar Spine: paraspinal tenderness (Right-sided lumbar) Neuro General: patient alert and patient awake Extrem General: normal to inspection and capillary refill normal Course Orders Ordered: ED Orders 02/15/22 07:59 Urine Culture Stat Vital Signs Vital signs: Vital Signs - 8 hr 02/15/22 07:38 Temperature 98.6 F Pulse Rate 95 H Respiratory Rate 17 Blood Pressure 122/73 Pulse Oximetry 100 MDM - Back Pain/Injury Lab Data Labs: Point of Care Testing Test Results Negative Urine Dip Bedside Urine Glucose Negative Bedside Urine Bilirubin - Negative Bedside Urine Ketone - Negative Urine Specific [place] 1.010 Bedside Urine Occult Blood - Negative Bedside Urine pH 6 Bedside Urine Protein - Negative Bedside Urine Urobilinogen - Negative Bedside Urine Nitrite - Negative Bedside Urine Leukocytes - Negative Esterase MDM Narrative Medical decision making narrative: Patient has a benign exam. The discomfort that she is having is more in her lower lumbar region rather than CVA tenderness. Vital signs unremarkable. Urinalysis shows no signs of infection. Urine culture was obtained and is pending at the time of discharge the patient was informed of this. We will hold on any antibiotics for now. I discussed this with the patient of feel that we can hold on any radiologic studies for now. Patient was given return precautions. She expressed understanding and agreement plan. Discharge Plan Departure Patient Disposition: Home Clinical Impression: Lower back pain Activity Restrictions/Additional Instructions: A urine culture was pending at the time of your discharge we will contact you if we need to start any antibiotics. I do recommend you contact your primary doctor for follow-up. Return to the emergency department for any new or worsening symptoms. Prescriptions: No Action vit-iron fum-folic ac [Mynatal] 1 EACH capsule 1 cap PO QDAY Qty: 0 0RF [IRON] PO QDAY Qty: 0 0RF ibuprofen 600 mg Tablet 600 mg PO Q6HR PRN (Reason: Fever/Mild Pain (1-3)) Qty: 30 0RF Referrals: Miscellaneous,DoctorMD [Primary Care Provider] - Stand Alone Forms: Work Release Note
[2022-02-15 08:07] VITALS: BP 118/73; PULSE 90; RESP 17; O2SAT 100
== END 2022-02-15 08:10 | disposition home or self-care (01) ==
PROVIDERS: Emergency Provider Emergency Medicine
DX: M54.50 Low back pain, unspecified (principal)
CPT/HCPCS: 81003; 81025; 87086; 99282

== ENCOUNTER → 2022-09-14 09:43 | Outpatient (CLI) | payer OTHER, MEDICAID, SELFPAY | PROVIDERS: Visit Provider Nurse Practitioner Family | DX: M54.2 Cervicalgia (principal) | CPT/HCPCS: 87070 ==

== ENCOUNTER 2022-10-27 08:33 | Emergency (ER) | payer OTHER, MEDICAID, SELFPAY ==
[2022-10-27 08:47] VITALS: PULSE 98; O2SAT 99
[2022-10-27 08:48] VITALS: BP 137/69; PULSE 91; O2SAT 99
[2022-10-27 08:51] VITALS: BP 137/69; PULSE 96; O2SAT 97
[2022-10-27 09:00] VITALS: BP 112/62; PULSE 88; RESP 20; TEMP 36.9; O2SAT 97; O2SAT 98; BMI 36.8
[2022-10-27 09:01] VITALS: BP 112/62; PULSE 87; O2SAT 97
--- NOTE | 2022-10-27 09:06 | ED_ITS ---
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 Does have sick contact wrist. Patient complains of cough cold congestion, dry cough for the past 8 or 9 days. Has had intermittent vomiting as well. Denies . Does not want a test. No fever chills body aches. Patient no distress at this time. Has a water bottle next to her from home to drink. Patient complains of bilateral lower lateral rib pain with coughing. No dyspnea. Otherwise no chest pain. Patient states she has been coughing a lot. Related Data Home Medications Medication Instructions Recorded Confirmed vitamin-ferrous fumarate 1 cap PO QDAY ##0 03/31/17 09/14/22 65 mg iron-folic acid 1 mg capsule (Mynatal) [IRON] PO QDAY ##0 09/10/17 09/14/22 Previous Rx's Medication Instructions Recorded ibuprofen 600 mg tablet 600 mg PO Q6HR PRN Fever/Mild Pain 12/18/20 (1-3) #30 tabs benzonatate 100 mg capsule 100 mg PO TID PRN cough #20 caps 10/27/22 ondansetron 4 mg disintegrating 4 mg PO Q8H PRN nausea and 10/27/22 tablet vomiting #15 tabs Allergies Allergy/AdvReac Type Severity Reaction Status Date / Time Penicillins Allergy Intermediate Vomiting Verified 10/27/22 09:19 Review of Systems Review of Systems Narrative: GENERAL: negative chills, fatigue, malaise, fever, sweats. HEENT: negative sinus pain, ear pain, sore throat, positive nasal congestion RESPIRATORY: negative dyspnea, positive cough CARDIOVASCULAR: negative chest pain, palpitations GASTROINTESTINAL: Positive nausea, vomiting, negative diarrhea and abdominal pain : negative dysuria, frequency, hematuria MUSCULOSKELETAL: negative muscle or bony pain SKIN: negative rash, skin lesions NEUROLOGIC: negative weakness, numbness ROS Unobtainable: All systems reviewed & are unremarkable except as noted in HPI and below Patient History Medical History Abnormal Pap smear of cervix Acne (~2006) Acute bronchitis Anemia Anemia affecting Asthma Carpal tunnel syndrome (~2007) Chicken pox (~1994) Closed fracture of distal phalanx of right little finger Conjunctivitis Delivered by section HSV-1 (herpes simplex virus 1) infection Kidney stones Pyelonephritis UTI (urinary tract infection) Surgical History Anesthesia History of appendectomy (~2002) History of (~09/26/17) S/P laparoscopic appendectomy S/P tonsillectomy (~2001) Family History Mother Hypertension Father Hypertension Sleep apnea Grandfather Bipolar 1 disorder History of heart disease Grandfather Hypertension Sleep apnea Diabetes mellitus History of heart disease Hyperlipidemia Grandmother Liver failure Alcoholic Mental health problem Family/Other Deafness Grandmother Sleep apnea Hypertension Diabetes mellitus Brother Hypertension Adopted Hyperlipidemia Sister Anxiety Depression Mental health problem Social History marital status: unmarried,living together household members: significant other pets and animals: Yes (X 2 dogs and X 1 cat) education level: college occupational status: employed current occupational exposures/hazards: No 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 It is dry. Patient has bilateral lateral rib pain when she does cough. Otherwise nontender. HEAD: Normocephalic. EYES: Pupils equal round No scleral icterus. ENT: Mucous membranes moist. NECK: Trachea midline. CARDIOVASCULAR: Regular rate and rhythm without murmurs RESPIRATORY: Clear to auscultation. Breath sounds equal bilaterally. No wheezes, rales, or rhonchi. Speaking full sentences. No respiratory distress. GASTROINTESTINAL: Abdomen soft, non-tender EXTREMITIES: No gross deformities. BACK: No flank tenderness. NEURO: AOx4. SKIN: Warm and dry PSYCH: Not anxious, is cooperative Initial Vital Signs Initial Vital Signs: Vital Signs Pulse Rate 98 H 10/27/22 08:47 Pulse Oximetry 99 10/27/22 08:47 Course Course Course Narrative: No new issues during course of stay Orders Ordered: Discontinued Medications Benzonatate (Benzonatate 100 Mg Capsule) 100 mg PO NOW ONE Stop: 10/27/22 09:06 Last Admin: 10/27/22 09:29 Dose: 100 mg Documented By: BRITTNEY Ondansetron HCl (Ondansetron 4 Mg Odt) 4 mg SL NOW ONE Stop: 10/27/22 09:06 Last Admin: 10/27/22 09:28 Dose: 4 mg Documented By: BRITTNEY Reevaluation(s) Reevaluation #1: Patient tolerated cough medication and nausea medication very well. Feeling better. Desires discharge home. She does not want await for results of viral swab. Takes 2 hours. She will call for the results. She desires discharge home. Return precautions reviewed with her. She does have appointment with her primary care for follow-up. Time: 09:56 Vital Signs Vital signs: Vital Signs - 8 hr 10/27/22 08:51 10/27/22 09:00 10/27/22 08:47 Temperature 98.4 F Pulse Rate 96 H 88 98 H Respiratory Rate 20 Blood Pressure 137/69 112/62 Pulse Oximetry 97 97 99 Oxygen Delivery Method Room Air Room Air 10/27/22 08:48 10/27/22 08:48 10/27/22 09:00 Temperature Pulse Rate 91 H Respiratory Rate Blood Pressure 137/69 Pulse Oximetry 99 98 Oxygen Delivery Method 10/27/22 09:01 10/27/22 09:01 10/27/22 09:30 Temperature Pulse Rate 87 Respiratory Rate 20 Blood Pressure 112/62 118/76 Pulse Oximetry 97 Oxygen Delivery Method 10/27/22 09:30 Temperature Pulse Rate 85 Respiratory Rate Blood Pressure Pulse Oximetry 97 Oxygen Delivery Method MDM - URI/Sore Throat Differential Diagnosis Differential diagnosis: Likely upper respiratory infection, viral infection, bronchitis and influenza Lab Data Labs: Lab Results 10/27/22 Range/Units 09:16 Chlamy pneumoniae PCR Not detected (Not Detect) Adenovirus (PCR) Not detected (Not Detect) B. pertussis DNA (PCR) Not detected (Not Detecte) B.parapertussis DNA PCR Not detected (Not Detecte) Coronavirus OC43 (PCR) Not detected (Not Detect) Coronavirus HKU1 (PCR) Not detected (Not Detect) Coronavirus 229E (PCR) Not detected (Not Detect) SARS-CoV-2 (PCR) Not detected (Not Detecte) Coronavirus NL63 (PCR) Not detected (Not Detect) Human Metapneumovir PCR Not detected (Not Detect) Influenza Type A (PCR) Not detected (Not Detect) Influenza Type B (PCR) Not detected (Not Detect) M. pneumoniae (PCR) Not detected (Not Detect) Parainfluenza 1 (PCR) Not detected (Not Detect) Parainfluenza 2 (PCR) Not detected (Not Detect) Parainfluenza 3 (PCR) Detected H (Not Detect) Parainfluenza 4 (PCR) Not detected (Not Detect) RSV (PCR) Not detected (Not Detect) Entero/Rhino (PCR) Not detected (Not Detect) MDM Narrative Medical decision making narrative: Appropriate for discharge home. Exam and laboratory studies otherwise reassuring. Cough medication and nausea medication provided. Reviewed patient results and is self-limiting treatment. Work note provided. Prescription for Zofran and Tessalon Perles provided. No imaging indicated at this time. Lungs are clear no respiratory distress. No tachypnea or hypoxia. Discharge Plan Departure Patient Disposition: Home Clinical Impression: Upper respiratory infection, Parainfluenza infection Instructions: DI for Viral Upper Respiratory Infection -- Adult Activity Restrictions/Additional Instructions: Please keep well hydrated. Prescription for nausea medication cough medication has been sent to [facility] pharmacy to pick up attendant today. Work note has been provided for you as well. Return if worse if any questions or concerns of any trouble breathing. Prescriptions: New benzonatate 100 mg capsule 100 mg PO TID PRN (Reason: cough) Qty: 20 0RF ondansetron 4 mg tablet,disintegrating 4 mg PO Q8H PRN (Reason: nausea and vomiting) Qty: 15 0RF No Action vit-iron fum-folic ac [Mynatal] 1 EACH capsule 1 cap PO QDAY Qty: 0 [IRON] PO QDAY Qty: 0 ibuprofen 600 mg Tablet 600 mg PO Q6HR PRN (Reason: Fever/Mild Pain (1-3)) Qty: 30 0RF Referrals: Miscellaneous,Doctor, MD [Primary Care Provider] - Stand Alone Forms: Work Release Note Visit Report Forms: Patient Portal/API
[2022-10-27] MEDS: ONDANSETRON 4 MG ODT SL (09:28)
[2022-10-27] MEDS: BENZONATATE 100 MG CAPSULE PO (09:29)
[2022-10-27 09:30] VITALS: BP 118/76; PULSE 85; RESP 20; O2SAT 97
[2022-10-27 10:12] LABS: Adenovirus Not Detected (Not Detect); B. parapertussis Not Detected (Not Detecte); Bordetella pertussis Not Detected (Not Detecte); Chlamydophila pneumoniae Not Detected (Not Detect); Coronavirus 229E Not Detected (Not Detect); Coronavirus HKU1 Not Detected (Not Detect); Coronavirus NL 63 Not Detected (Not Detect); Coronavirus OC43 Not Detected (Not Detect); Human Metapneumovirus Not Detected (Not Detect); Human Rhinovirus/Enterovirus Not Detected (Not Detect); Influenza A Not Detected (Not Detect); Influenza B Not Detected (Not Detect); Mycoplasma pneumoniae Not Detected (Not Detect); Parainfluenza Virus 1 Not Detected (Not Detect); Parainfluenza Virus 2 Not Detected (Not Detect); Parainfluenza Virus 3 Detected (Not Detect); Parainfluenza Virus 4 Not Detected (Not Detect); Respiratory Syncytial Virus Not Detected (Not Detect); SARS- CoV-2 Not Detected (Not Detecte)
== END 2022-10-27 10:08 | disposition home or self-care (01) ==
PROVIDERS: Emergency Provider Emergency Medicine
DX: J06.9 Acute upper respiratory infection, unspecified (principal); B34.8 Other viral infections of unspecified site; Z20.822 Contact with and (suspected) exposure to COVID-19
CPT/HCPCS: 87633; 99283

== ENCOUNTER 2023-11-08 08:47 | Emergency (ER) | payer OTHER, MEDICAID, SELFPAY ==
[2023-11-08] VITALS (12 sets, daily range): BP systolic 126–146; BP diastolic 70–79; PULSE 101–133; RESP 16–18; TEMP 37.2; O2SAT 94–97; BMI 36.6
--- NOTE | 2023-11-08 09:02 | ED.URI ---
HPI - URI/Sore Throat General Chief Complaint: Upper Respiratory Symptoms Stated Complaint: cough T-14/ SOB/ Vomiting Time Seen by Provider: 11/08/23 08:58 Source: patient Mode of arrival: Ambulatory History of Present Illness HPI Narrative: Patient 33-year-old healthy female who presents today with persistent nonproductive cough. She says it has been going on for about 2 weeks. She coughs so hard she was urinary incontinence. Every time she breathes or speak she is coughing. No real fever. She reports that her 2 young children have had cough but have recovered. Denies shortness of breath but is coughing quite a bit. She denies any abdominal pain chest pain or palpitations. Real nausea or vomiting. Reports having difficulty sleeping at night sometimes due to coughing. Related Data Home Medications Medication Instructions Recorded Confirmed [IRON] PO QDAY ##0 09/10/17 09/14/22 Previous Rx's Medication Instructions Recorded albuterol sulfate 90 mcg/actuation 2 puff inhalation Q4-6H PRN 11/08/23 aerosol inhaler shortness of breath or wheezing #8.5 grams hydrocodone-homatropine 5 mg-1.5 5 ml PO Q6H PRN cough #50 mL 11/08/23 mg/5 mL (5 mL) oral syrup prednisone 20 mg tablet 40 mg (2 x 20 mg) PO DAILY #10 tabs 11/08/23 Allergies Allergy/AdvReac Type Severity Reaction Status Date / Time Penicillins Allergy Intermediate Vomiting Verified 11/08/23 08:55 Review of Systems Review of Systems ROS Unobtainable: All systems reviewed & are unremarkable except as noted in HPI and below Patient History Medical History Conjunctivitis Acne (~2006) Carpal tunnel syndrome (~2007) Chicken pox (~1994) Kidney stones Acute bronchitis Asthma Closed fracture of distal phalanx of right little finger UTI (urinary tract infection) Anemia HSV-1 (herpes simplex virus 1) infection Abnormal Pap smear of cervix Anemia affecting Delivered by section Pyelonephritis Surgical History Anesthesia History of appendectomy (~2002) S/P laparoscopic appendectomy S/P tonsillectomy (~2001) History of (~09/26/17) Family History Mother Hypertension Father Hypertension Sleep apnea Grandfather Bipolar 1 disorder History of heart disease Grandfather Hypertension Sleep apnea Diabetes mellitus History of heart disease Hyperlipidemia Grandmother Liver failure Alcoholic Mental health problem Family/Other Deafness Grandmother Sleep apnea Hypertension Diabetes mellitus Brother Hypertension Adopted Hyperlipidemia Sister Anxiety Depression Mental health problem Social History marital status: unmarried,living together household members: significant other pets and animals: Yes (X 2 dogs and X 1 cat) education level: college occupational status: employed current occupational exposures/hazards: No 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 HEENT: Head atraumatic,EOMI, pupils reactive, face symmetric, moist mucous membranes CARDIOVASCULAR: Tachycardic regular no murmurs RESPIRATORY: Breath sounds rales no conversational dyspnea but has coughing spells while talking ABDOMEN: Soft, nontender. Normoactive bowel sounds all 4 quadrants. No guarding or rebound. EXTREMITIES: Normal range of motion, no clubbing or edema. Neurovascularly intact NEUROLOGICAL: Alert and oriented x4.Normal gait and speech. SKIN: Warm, dry, no laceration, no petechiae, no rashes or lesions. Course Orders Ordered: Discontinued Medications Albuterol (Albuterol 2.5 Mg/3 Ml Neb (Adult)) 5 mg INH NOW ONE Stop: 11/08/23 09:03 Last Admin: 11/08/23 09:19 Dose: 5 mg Documented By: SAT Albuterol (Albuterol 2.5 Mg/3 Ml Neb (Adult)) 2.5 mg INH NOW ONE Stop: 11/08/23 10:27 Last Admin: 11/08/23 10:33 Dose: 2.5 mg Documented By: SAT Vital Signs Vital signs: Vital Signs - 8 hr 11/08/23 11:15 11/08/23 11:15 11/08/23 11:30 Pulse Rate 133 H 118 H Blood Pressure 138/78 Pulse Oximetry 97 94 Oxygen Delivery Method 11/08/23 11:30 11/08/23 11:33 Pulse Rate Blood Pressure 129/79 Pulse Oximetry Oxygen Delivery Method Room Air MDM - URI/Sore Throat Lab Data Labs: Lab Results 11/08/23 Range/Units 09:00 SARS-CoV-2 (PCR) Negative (Negative) Influenza A (RT-PCR) Flu a negative (NEGATIVE) Influenza B (RT-PCR) Flu b negative (NEGATIVE) RSV (PCR) Negative (Negative) Imaging Data Chest x-ray: Radiologist's Impression: PROCEDURE: XR CHEST 1V INDICATIONS: cough TECHNIQUE: One view of the chest was acquired. COMPARISON: None. FINDINGS: Surgical changes and devices: None. Lungs and pleura: Lungs are clear. No pleural effusions or pneumothorax. Mediastinum: Mediastinal contours appear normal. Heart size is normal. Bones and chest wall: No suspicious bony lesions. Overlying soft tissues appear unremarkable. IMPRESSION: No acute process. Dictated by: Gaetano Portillo M.D. on 11/08/2023 at 9:36 MDM Narrative Medical decision making narrative: Patient 33-year-old female who presents today with upper respiratory like symptoms ongoing for the last 2 weeks. She is tachycardic and definitely gets worse when she is coughing. She has signs and symptoms consistent with a reactive airway disease. X-ray is negative for pneumonia viral panel is negative. At this time suspect a bronchitis. She did improve somewhat with albuterol heart rate improved. However she started having coughing episode again was elevated heart rate. Low suspicion for pulmonary embolism. Much more suspect a viral illness. She has a low-grade temperature 99? not consistent with fever. Blood pressure is stable. Do not suspect sepsis at this time. Heart rate elevation definitely coincides with coughing. She states that she staying hydrated but decreased appetite. Discussed appropriate ways of stay hydrated. She is given albuterol with spacer and supportive measures only at this time. Discharge Plan Departure Patient Disposition: Home Clinical Impression: Acute upper respiratory infection, RAD (reactive airway disease) Instructions: DI for Viral Upper Respiratory Infection -- Adult Activity Restrictions/Additional Instructions: *You have been diagnosed with upper respiratory infection *What to do: At this time no need for antibiotics your x-ray is negative. Recommend staying hydrated with Gatorade or Gatorade like substance. Eat as tolerated. *Continue to take medications as directed--> [facility] Albuterol 1-2 puffs with spacer if needed for coughing or shortness of breath Prednisone 40 mg once a day for 5 days, start today *Follow up with your primary care provider in 2-3 days or call [phone] *Return to ER if you should have increasing cough chest pain confusion or any new, worsening or concerning symptoms Prescriptions: New albuterol sulfate 90 mcg/actuation HFA aerosol inhaler 2 puff INHALATION Q4-6H PRN (Reason: shortness of breath or wheezing) Qty: 8.5 0RF hydrocodone-homatropine 5-1.5 mg/5 mL (5 mL) syrup 5 ml PO Q6H PRN (Reason: cough) Qty: 50 0RF prednisone 20 mg tablet 40 mg PO DAILY Qty: 10 0RF No Action [IRON] PO QDAY Qty: 0 Referrals: Miscellaneous,Doctor, [Primary Care Provider] - Stand Alone Forms: Patient Portal/API
[2023-11-08] MEDS: ALBUTEROL 2.5 MG/3 ML NEB (ADULT) 5 MG INH (09:19)
[2023-11-08 10:08] LABS: Influenza A - CEPHEID Flu A NEGATIVE (NEGATIVE); Influenza B - CEPHEID Flu B NEGATIVE (NEGATIVE); Respiratory Syncytial Virus Negative (Negative)
[2023-11-08 10:20] LABS: COVID-19 CEPHEID 4-PLEX PCR Negative (Negative)
[2023-11-08] MEDS: ALBUTEROL 2.5 MG/3 ML NEB (ADULT) INH (10:33)
--- NOTE | 2023-11-08 11:34 | PC.NURSE ---
Pt cleared for D/C, HR 93. Physician aware.
== END 2023-11-08 11:34 | disposition home or self-care (01) ==
PROVIDERS: Emergency Provider Emergency Medicine
DX: J06.9 Acute upper respiratory infection, unspecified (principal); J45.909 Unspecified asthma, uncomplicated; Z11.52 Encounter for screening for COVID-19
CPT/HCPCS: 0241U; 71045; 94640; 99283; J7613

== ENCOUNTER 2024-07-08 10:23 | Emergency (ER) | payer OTHER, MEDICAID, SELFPAY ==
[2024-07-08] VITALS (7 sets, daily range): BP systolic 118–155; BP diastolic 68–93; PULSE 83–102; RESP 17; TEMP 36.6; O2SAT 97–99; BMI 37.2
[2024-07-08 10:57] LABS: Add Manual Diff / Slide Review NO; Basophils Absolute Auto 0 /uL (0-100); Basophils Percent Auto 0.6 % (0-2); Eosinophils Absolute Auto 100 /uL (0-450); Eosinophils Percent Auto 0.8 % (2-4); Hematocrit 39.6 % (36-46); Hemoglobin 13.3 g/dL (12.0-16.0); Lymphocytes Absolute Auto 2400 /uL (1100-4500); Lymphocytes Percent Auto 37.6 % (25-40); Mean Corpuscular HGB Conc 33.5 % (30-36); Mean Corpuscular Hemoglobin 28.2 PG (26-34); Mean Corpuscular Volume 84.2 fL (80-100); Monocytes Absolute Auto 300 /uL (0-900); Monocytes Percent Auto 4.9 % (3-14); Neutrophils Absolute Auto 3600 /uL (1500-7000); Neutrophils Percent Auto 56.1 % (50-75); Platelet Count 294 X10^3/uL (150-400); Red Cell Distribution Width 13.4 % (11.6-14.8); White Blood Cell Count 6.5 X10^3/uL (4.5-11.0)
[2024-07-08 11:07] LABS: Alanine Aminotransferase 25 IU/L (<35); Albumin 4.7 g/dL (3.5-5.0); Albumin Globulin Ratio 1.4 (1.0-2.8); Alkaline Phosphatase 91 U/L (38-126); Aspartate Aminotransferase 30 IU/L (14-36); BUN Creatinine Ratio 6.9 (6-22); Bilirubin Total 0.7 mg/dL (0.2-1.3); Blood Urea Nitrogen 5 mg/dL (7-17); Calcium 9.6 mg/dL (8.4-10.2); Carbon Dioxide 26 mmol/L (22-32); Chloride 103 mmol/L (98-107); Estimated Glomerular Filt Rate > 60 mL/min (>60); Globulin 3.4 g/dL (1.7-4.1); Glucose 129 mg/dL (70-100); HEMOLYSIS < 15 (0-50); Lipase 81 U/L (23-300); Potassium 3.8 mmol/L (3.4-5.1); Sodium 139 mmol/L (137-145); Total Protein 8.1 g/dL (6.3-8.2)
[2024-07-08 11:10] LABS: Urine Volume 10mL (spun)
[2024-07-08 11:14] LABS: Amorphous Sediment Urine 2+; Bacteria Urine Many (>30); Culture Indicated Urine Specimen Cultured; RBC Urine 5-10/HPF (0-5/HPF); Squamous Epithelial Cell Urine 10-30 /HPF (0-5/HPF); WBC Urine 1-5/HPF (0-5/HPF)
--- NOTE | 2024-07-08 11:42 | ED.ABDPAIN ---
HPI - Abdominal Pain General Chief Complaint: Abdominal Pain Stated Complaint: upper back pain/pressure, nausea Time Seen by Provider: 07/08/24 11:42 Source: patient Mode of arrival: Ambulatory History of Present Illness HPI narrative: Patient is a 34-year-old female who presents today with right upper quadrant pain. She actually says it has been ongoing for the last 3-4 days. It is definitely worse when she eats. She thinks it might be her gallbladder so she has been trying to do a gallbladder diet. No fever or chills. She also has bilateral flank pain. No significant nausea or vomiting. No chest pain or palpitations. Not currently wanting anything for pain or nausea Related Data Previous Rx's Medication Instructions Recorded nitrofurantoin 100 mg PO Q12H 7 days #14 caps 07/08/24 monohydrate/macrocrystals 100 mg capsule (Macrobid) Allergies Allergy/AdvReac Type Severity Reaction Status Date / Time Penicillins AdvReac Intermediate Vomiting Verified 07/08/24 10:32 Patient History Medical History Conjunctivitis Acne (~2006) Carpal tunnel syndrome (~2007) Chicken pox (~1994) Kidney stones Acute bronchitis Asthma Closed fracture of distal phalanx of right little finger UTI (urinary tract infection) Anemia HSV-1 (herpes simplex virus 1) infection Abnormal Pap smear of cervix Anemia affecting Delivered by section Pyelonephritis Surgical History Anesthesia History of appendectomy (~2002) S/P laparoscopic appendectomy S/P tonsillectomy (~2001) History of (~09/26/17) Family History Mother Hypertension Father Hypertension Sleep apnea Grandfather Bipolar 1 disorder History of heart disease Grandfather Hypertension Sleep apnea Diabetes mellitus History of heart disease Hyperlipidemia Grandmother Liver failure Alcoholic Mental health problem Family/Other Deafness Grandmother Sleep apnea Hypertension Diabetes mellitus Brother Hypertension Adopted Hyperlipidemia Sister Anxiety Depression Mental health problem Social History marital status: unmarried,living together household members: significant other pets and animals: Yes (X 2 dogs and X 1 cat) education level: college occupational status: employed current occupational exposures/hazards: No 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 HEENT: Head atraumatic,EOMI, pupils reactive, face symmetric, moist mucous membranes CARDIOVASCULAR: Regular rate and rhythm without murmurs, rubs or gallops. RESPIRATORY: Breath sounds equal bilaterally, no wheezes rales or rhonchi. ABDOMEN: Soft, nontender. Normoactive bowel sounds all 4 quadrants. No guarding or rebound. Minimal right upper quadrant pain mild epigastric pain no guarding or rebound : Slight bilateral CVA tenderness EXTREMITIES: Normal range of motion, no clubbing or edema. Neurovascularly intact NEUROLOGICAL: Alert and oriented x4.Normal gait and speech. SKIN: Warm, dry, no laceration, no petechiae, no rashes or lesions. Course Orders Ordered: ED Orders 07/08/24 10:42 Urine Culture Stat Urine Microscopic Stat 07/08/24 10:45 Complete Blood Count AUTO DIFF Stat Comprehensive Metabolic Panel Stat Lipase Stat 07/08/24 11:55 US abdomen limited Stat Discontinued Medications Ondansetron HCl (Ondansetron 4 Mg/2 Ml Inj) 4 mg IV NOW PRN PRN Reason: Nausea And Vomiting Ondansetron HCl (Ondansetron 4 Mg Odt) 4 mg PO NOW PRN PRN Reason: Nausea And Vomiting Vital Signs Vital signs: Vital Signs - 8 hr 07/08/24 10:28 07/08/24 11:17 07/08/24 11:18 Temperature 98 F Pulse Rate 92 H 102 H Respiratory Rate 17 Blood Pressure 155/93 H 131/87 Pulse Oximetry 99 99 Oxygen Delivery Method Room Air 07/08/24 11:18 07/08/24 11:30 07/08/24 11:30 Temperature Pulse Rate 101 H 88 Respiratory Rate Blood Pressure 118/79 Pulse Oximetry 97 97 Oxygen Delivery Method Room Air 07/08/24 12:00 07/08/24 12:00 07/08/24 12:30 Temperature Pulse Rate 84 Respiratory Rate Blood Pressure 126/68 120/71 Pulse Oximetry 97 Oxygen Delivery Method Room Air 07/08/24 12:30 07/08/24 13:00 07/08/24 13:00 Temperature Pulse Rate 83 92 H Respiratory Rate Blood Pressure 130/77 Pulse Oximetry 98 98 Oxygen Delivery Method Room Air Room Air MDM - Abdominal Pain Lab Data 07/08/24 10:45 07/08/24 10:45 Labs: Lab Results 07/08/24 07/08/24 Range/Units 10:42 10:45 WBC 6.5 (4.5-11.0) X10^3/uL RBC 4.70 (4.0-5.2) X10^6/uL Hgb 13.3 (12.0-16.0) g/dL Hct 39.6 (36-46) % MCV 84.2 (80-100) fL MCH 28.2 (26-34) PG MCHC 33.5 (30-36) % RDW 13.4 (11.6-14.8) % Plt Count 294 (150-400) X10^3/uL Neut % (Auto) 56.1 (50-75) % Lymph % (Auto) 37.6 (25-40) % [place] % (Auto) 4.9 (3-14) % Eos % (Auto) 0.8 L (2-4) % Baso % (Auto) 0.6 (0-2) % Neut # (Auto) 3600 (8811-0788) /uL Lymph # (Auto) 2400 (0094-9257) /uL [place] # (Auto) 300 (0-900) /uL Eos # (Auto) 100 (0-450) /uL Baso # (Auto) 0 (0-100) /uL Sodium 139 (137-145) mmol/L Potassium 3.8 (3.4-5.1) mmol/L Chloride 103 (98-107) mmol/L Carbon Dioxide 26 (22-32) mmol/L BUN 5 L (7-17) mg/dL Creatinine 0.72 (0.52-1.04) mg/dL Estimated GFR > 60 (>60) mL/min BUN/Creatinine Ratio 6.9 (6-22) Glucose 129 H (70-100) mg/dL Calcium 9.6 (8.4-10.2) mg/dL Total Bilirubin 0.7 (0.2-1.3) mg/dL AST 30 (14-36) IU/L ALT 25 (<35) IU/L Alkaline Phosphatase 91 (38-126) U/L Total Protein 8.1 (6.3-8.2) g/dL Albumin 4.7 (3.5-5.0) g/dL Globulin 3.4 (1.7-4.1) g/dL Albumin/Globulin Ratio 1.4 (1.0-2.8) Lipase 81 (23-300) U/L Urine RBC 5-10/hpf H (0-5/HPF) Urine WBC 1-5/hpf (0-5/HPF) Ur Squamous Epith Cells 10-30 /hpf H D (0-5/HPF) Amorphous Sediment 2+ Urine Bacteria Many (>30) H (None) Ur Culture Indicated? Specimen cultured Vol Urine Centrifuged 10ml (spun) Point of care testing: Point of Care Testing Test Results Negative Urine Dip Bedside Urine Glucose Negative Bedside Urine Bilirubin - Negative Bedside Urine Ketone +++ 80 Urine Specific [place] 1.020 Bedside Urine Occult Blood ++ Bedside Urine pH 6.0 Bedside Urine Protein +/- 15 Bedside Urine Urobilinogen - Negative Bedside Urine Nitrite + Positive Bedside Urine Leukocytes ++ 125 Esterase Imaging Data US - abdomen: Radiologist's Impression: PROCEDURE: US ABDOMEN LIMITED INDICATIONS: RUQ TECHNIQUE: Real-time scanning was performed of the abdominal and retroperitoneal organs, with image documentation. COMPARISON: None. FINDINGS: Liver: Liver is normal in size and homogeneous in echotexture. Gallbladder: Stones and sludge. No wall thickening. No pericholecystic edema. Negative sonographic Palm's sign. Biliary ducts: Intrahepatic bile ducts are non-dilated. Extrahepatic bile duct caliber measures 6.5 mm. Normal is 6-7 mm or less in diameter, or 10 mm or less post-cholecystectomy. Pancreas: Visualized portions of the pancreas are sonographically normal. Miscellaneous: No free abdominal fluid. IMPRESSION: Cholelithiasis without acute cholecystitis. Dictated by: Arthie Jeyakumar, M.D. on 07/08/2024 at 12:41 MDM Narrative Medical decision making narrative: Patient 34-year-old female presenting today with some bilateral flank pain abdominal pain concern for gallbladder issue. She overall appears comfortable at this time. Blood work has been reviewed she has no leukocytosis elevated bilirubin liver enzymes or lipase all within normal limits. Urinalysis is positive for nitrates and leukocytes but she denies painful frequent urination but this is consistent with a UTI. Ultrasound does confirm cholelithiasis without cholecystitis At this time recommend treating her for UTI and follow-up with outpatient surgery. No need for emergent surgery at this time. She has no evidence of sepsis she has no fever or leukocytosis. Liver enzymes and bilirubin are within normal limits. Discharge Plan Departure Patient Disposition: Home Clinical Impression: UTI (urinary tract infection), Cholelithiasis Instructions: Gallstones, DI for Urinary Tract Infection (UTI) Activity Restrictions/Additional Instructions: *You have been diagnosed with UTI and gallstones *What to do: At this time I do recommend that you call surgery for outpatient follow-up and schedule elective surgery for your gallbladder. At this time it is not emergent. Continue to follow low-fat gallbladder diet. *Continue to take medications as directed Tylenol or Motrin as needed for pain Macrobid 100 mg twice a day for 7 days *Follow up with your primary care provider in 2-3 days or call [phone] *Return to ER if you should have increasing pain fever nausea vomiting [or] any new, worsening or concerning symptoms Prescriptions: New nitrofurantoin monohyd/m-cryst [Macrobid] 100 mg capsule 100 mg PO Q12H 7 Days Qty: 14 0RF Rx Instructions: must administer with a meal/food Referrals: [facility] [Provider Group] Magaliecellluis,DoctorMD [Primary Care Provider] - Stand Alone Forms: Patient Portal/API
--- NOTE | 2024-07-08 11:55 | DI.US.S_ITS ---
PROCEDURE: US ABDOMEN LIMITED INDICATIONS: RUQ TECHNIQUE: Real-time scanning was performed of the abdominal and retroperitoneal organs, with image documentation. COMPARISON: None. FINDINGS: Liver: Liver is normal in size and homogeneous in echotexture. Gallbladder: Stones and sludge. No wall thickening. No pericholecystic edema. Negative sonographic Palm's sign. Biliary ducts: Intrahepatic bile ducts are non-dilated. Extrahepatic bile duct caliber measures 6.5 mm. Normal is 6-7 mm or less in diameter, or 10 mm or less post-cholecystectomy. Pancreas: Visualized portions of the pancreas are sonographically normal. Miscellaneous: No free abdominal fluid. IMPRESSION: Cholelithiasis without acute cholecystitis. Dictated by: Alpa Murphy M.D. on 07/08/2024 at 12:41 Approved by: Alpa Murphy M.D. on 07/08/2024 at 12:42
== END 2024-07-08 13:15 | disposition home or self-care (01) ==
PROVIDERS: Emergency Provider Emergency Medicine
DX: K80.20 Calculus of gallbladder without cholecystitis without obstruction (principal); N39.0 Urinary tract infection, site not specified
CPT/HCPCS: 36415; 76705; 80053; 81003; 81015; 81025; 83690; 85025; 87086; 99283; 99284

== ENCOUNTER 2024-08-05 10:10 | Day surgery (SDC) | payer OTHER, MEDICAID, SELFPAY ==
[2024-08-01 10:20] VITALS: BMI 36.8
[2024-08-05] VITALS (7 sets, daily range): BP systolic 93–123; BP diastolic 58–84; PULSE 71–104; RESP 8–16; TEMP 36.2–36.6; O2SAT 97–100; BMI 37.2
--- NOTE | 2024-08-05 | PATH_ITS ---
[facility] Accession Number: [id number] No. of containers..01 Tissue . 01 Material submitted: . gallbladder - GALLBLADDER . 01 Diagnosis: GALLBLADDER, CHOLECYSTECTOMY: Mild chronic cholecystitis and polypoid cholesterolosis. Negative for dysplasia or malignancy. MRV 08/08/2024 1228 Local . 01 Electronically signed: . Betsy Patel MD, Pathologist NPI- [id number] . 01 Gross description: . Received in formalin with two patient identifiers and gallbladder, is an intact gallbladder, 7.5 x 3.4 x 3.4 cm, with an unremarkable external surface. The cystic duct margin is inked blue, and no pericystic lymph node is identified. The lumen contains dark green viscous bile with no calculi identified in the lumen or the container. The mucosa is green and velvety with pinpoint yellow areas of discoloration and no polyps or lesions identified. The house average 0.2 cm thick. Rnfa sections to include the cystic duct margin and full thickness sections are submitted in A1. ([id number]) /MRV 08/06/2024 1527 Local . 01 Pathologist provided ICD-10: K81.1 . 01 CPT . 198383 Specimen Comment: A courtesy copy of this report has been sent to [phone] Performed at: [address] [facility] [address] [address], [place], [place] [id number] MD Luis Antonio Mendoza MD Phone: [phone]
[2024-08-05] MEDS: LACTATED RINGERS 1,000 ML 42 ML IV (10:19)
[2024-08-05] MEDS: ACETAMINOPHEN 325 MG TABLET 975 MG PO (10:21)
[2024-08-05] MEDS: SCOPOLAMINE 1 PATCH TOP (10:21)
[2024-08-05] MEDS: FAMOTIDINE 20 MG/2 ML VIAL IV (10:22)
--- NOTE | 2024-08-05 11:05 | P.HP_ITS ---
History of Present Illness History of Present Illness Date Patient Seen: 08/05/24 Time Patient Seen: 11:05 Chief complaint: SDC Narrative: Yanna is a 34-year-old woman with acute cholecystitis. See the office note for details. [facility] Medical History (Updated 08/05/24 @ 11:05 by Germán Miller MD) Conjunctivitis Acne (~2006) Carpal tunnel syndrome (~2007) Chicken pox (~1994) Kidney stones Acute bronchitis Asthma Closed fracture of distal phalanx of right little finger UTI (urinary tract infection) Anemia HSV-1 (herpes simplex virus 1) infection Abnormal Pap smear of cervix Anemia affecting Delivered by section Pyelonephritis Surgical History (Updated 08/01/24 @ 10:29 by Leana Barrios RN) History of (12/17/20) Anesthesia History of appendectomy (~2002) S/P laparoscopic appendectomy S/P tonsillectomy (~2001) History of (~09/26/17) Family History Mother Hypertension Diabetes mellitus Father Hypertension Sleep apnea Grandfather Bipolar 1 disorder History of heart disease Stroke Gallstones Grandfather Hypertension Sleep apnea Diabetes mellitus History of heart disease Hyperlipidemia Grandmother Liver failure Alcoholic Mental health problem Family/Other Deafness Grandmother Sleep apnea Hypertension Diabetes mellitus Brother Hypertension Adopted Hyperlipidemia Sister Anxiety Depression Mental health problem Social History marital status: unmarried,living together household members: significant other and children pets and animals: Yes (X 2 dogs and X 1 cat) education level: college occupational status: employed current occupational exposures/hazards: No 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 Smoking Status: Never smoker second hand exposure: No alcohol intake: never substance use type: does not use Meds Home Medications and Allergies Home Medications Medication Instructions Recorded Confirmed Type No Known Home Medications 07/21/24 07/21/24 History Allergies Allergy/AdvReac Type Severity Reaction Status Date / Time Penicillins AdvReac Intermediate Vomiting Verified 08/05/24 10:28 Exam Vital Signs (past 8 hours): - 08/05/24 10:29 Temperature 97.2 F L Pulse Rate 104 H Respiratory Rate 16 Blood Pressure 123/84 Pulse Oximetry 100 Oxygen Delivery Method Room Air Oxygen Delivery Method Room Air Const General: No acute distress Assessment & Plan Assessment and plan (1) Symptomatic cholelithiasis: Status: Acute Plan We reviewed the risks and benefits of laparoscopic cholecystectomy and she would like to proceed. Time-Based Coding :: [TOTAL MINUTES] spent with patient and on the chart (including review of chart, obtaining history, exam, reviewing outside data, placing orders, documenting exam and treatment plan, and counseling patient) on [DATE].
[2024-08-05] MEDS: CEFAZOLIN 2 GM/100 ML PREMIX 100 ML IV (11:45)
[2024-08-05] MEDS: BUPIVACAINE 0.5% (PF) 30 ML, EPINEPHrine 0.15 MG INJ (11:56)
--- NOTE | 2024-08-05 12:06 | SUR.OPER ---
Supine on padded OR bed, head on pillow, arms secured on padded arm boards at <90 degrees abduction, legs uncrossed, safety belt at thigh, tape over blanket over lower legs.
--- NOTE | 2024-08-05 12:30 | PM.OP.1 ---
Operative Date/Time/Diagnoses Date of procedure: 08/05/24 Time of procedure: 12:30 Pre-op diagnosis: Symptomatic cholelithiasis Post-op diagnosis: same Procedure & Clinicians Procedure: Laparoscopic cholecystectomy Same procedure as scheduled: Yes Surgeon: Germán Miller Cnc Router Operator: Khalif Ott Anesthesia Type: General Operative Notes Procedure in detail: The patient was given preoperative antibiotics. The patient was brought to the operating room and placed on the table in the supine position. General endotracheal anesthesia was induced. The abdomen was prepped and draped. A time-out was performed. We made a 1 cm infraumbilical incision. We dissected down to the base of the umbilical stalk using cautery. We grasped the umbilical stalk with a Tyrell clamp to elevate the abdominal wall. We scored the fascia in the midline with cautery. We pierced the peritoneum with a Peon clamp. The Jessy port was placed and the abdomen was insufflated to 15 mmHg. A 5 mm 30 degree laparoscopic was inserted. There was no evidence of any injury from the entry. Next, we placed 5 mm ports in the subxiphoid position and right upper quadrant at the midclavicular line and anterior axillary line. The patient was then positioned in reverse Trendelenburg and the table was tilted to the left. The gallbladder was grasped at the dome and retracted cephalad. We then dissected the cystic structures with a combination of hook cautery and blunt dissection. We obtained a critical view. We placed clips on the cystic duct and artery and divided the cystic duct and artery sharply between the clips. The gallbladder was then dissected off the liver and placed in a specimen retrieval bag. We irrigated the right upper quadrant and all the aspirate returned clear. We then removed the 5 mm ports under direct vision we removed the Jessy port. We then injected some local into the fascia and closed the fascia with 2 interrupted 0 Vicryl sutures. The skin incisions were closed with 4-0 Monocryl and Steri-Strips were applied. Band-Aids were applied over the Steri-Strips. EBL: 3 mL Specimen: Gallbladder and contents Post-operative Condition: stable Disposition: PACU
[2024-08-05] MEDS: KETOROLAC 30 MG/ML VIAL 15 MG IV (12:49)
[2024-08-05] MEDS: ONDANSETRON 4 MG/2 ML INJ IV ×2 (12:51→13:50)
[2024-08-05] MEDS: hydrOXYzine 50 MG/ML INJ 25 MG IM (12:52)
== END 2024-08-05 13:57 | disposition home or self-care (01) ==
PROVIDERS: Referring Provider Surgery; Visit Provider Surgery
PROC: 0FT44ZZ Resection of Gallbladder, Percutaneous Endoscopic Approach (ICD-10-PCS; CPT 47562; principal; 2024-08-05 11:45)
DX: K81.1 Chronic cholecystitis (principal); K82.8 Other specified diseases of gallbladder
CPT/HCPCS: 47562; 81025; J0171; J0690; J1100; J1170; J1885; J2250; J2405; J2704; J3010; J3410